=== PATIENT | female | born 1985 | race Caucasian/White ===

== ENCOUNTER → 2021-11-19 | Outpatient (CLI) | payer OTHER | LOC: M WUC 10:08 | PROVIDERS: ATTEND Family Medicine | DX: M54.2 Cervicalgia (principal) ==

== ENCOUNTER → 2022-07-13 | Outpatient (CLI) | payer OTHER ==
[2022-07-13 16:40] LABS: HEMATOCRIT 39.4 % (36.0-47.0); HEMOGLOBIN 13.2 g/dl (12.0-15.5); MEAN CORPUSCULAR HEMOGLOBIN 32.5 pg (27.0-33.0); MEAN CORPUSCULAR HGB CONC 33.5 g/dl (32.0-36.5); PLATELET COUNT, AUTOMATED 197 10^3/uL (150-450); RED BLOOD COUNT 4.06 10^6/uL (4.00-5.40); WHITE BLOOD COUNT 9.7 10^3/uL (4.0-10.0)
[2022-07-13 17:10] LABS: BLOOD UREA NITROGEN 8 MG/DL (9-23); CALCIUM LEVEL 9.3 MG/DL (8.5-10.1); CARBON DIOXIDE LEVEL 31 MMOL/L (20-31); CHLORIDE LEVEL 101 MMOL/L (98-107); CREATININE FOR GFR 0.87 MG/DL (0.55-1.30); GLOMERULAR FILTRATION RATE > 60.0 (>60); GLUCOSE, FASTING 94 MG/DL (60-100); POTASSIUM SERUM 3.8 MMOL/L (3.5-5.1); SODIUM LEVEL 139 MMOL/L (136-145)
== END ==
LOC: M WUC 13:26
PROVIDERS: ATTEND Plastic Surgery Surgery of the Hand
DX: N64.82 Hypoplasia of breast (principal)

== ENCOUNTER → 2022-07-17 | Outpatient (CLI) | payer OTHER, SELFPAY | LOC: M LABSMTC 09:23 | PROVIDERS: ATTEND Anesthesiology | DX: Z01.818 Encounter for other preprocedural examination (principal); Z11.52 Encounter for screening for COVID-19 ==

== ENCOUNTER 2022-07-21 07:10 | Day surgery (SDC) | payer SELFPAY ==
[~2022-07-21] VITALS: Ht 157.5 cm; Wt 56.7 kg
[~2022-07-21 07:10] MED LIST: ceFAZolin SOD 2 GM in IV 1 EA IV ONE
[2022-07-21] MEDS ORDERED: LR 1,000 ML IV SCH (07:35)
[2022-07-21] MEDS ORDERED: ONDANSETRON 4MG 2ML VIAL As Ordered ONE (08:09)
[2022-07-21] MEDS ORDERED: ROCURONIUM BROMIDE 50MG/5ML VIAL As Ordered ONE ×2 (08:09→09:51)
[2022-07-21] MEDS ORDERED: propofoL 200 MG/20 ML VIAL As Ordered ONE (08:09)
[2022-07-21] MEDS ORDERED: LIDOCAINE 2% 100MG/5ML SDV (FOR ANES.) As Ordered ONE (08:09)
[2022-07-21] MEDS ORDERED: fentaNYL 250 MCG/5 ML INJECTION As Ordered ONE (08:09)
[2022-07-21] MEDS ORDERED: MIDAZOLAM INJ 2MG/2ML VIAL As Ordered ONE (08:10)
[2022-07-21] MEDS ORDERED: HYDROmorphone HCL 2MG/ML 1ML VIAL As Ordered ONE (08:16)
[2022-07-21] MEDS ORDERED: ACETAMINOPHEN 1000MG 100ML IV BAG As Ordered ONE (08:16)
[2022-07-21] MEDS ORDERED: SUGAMMADEX SODIUM 500 MG/5 ML VIAL (BRIDION) As Ordered ONE (08:16)
[2022-07-21] MEDS ORDERED: BUPIVACAINE HCL 0.25% 10ML VIAL As Ordered ONE (08:34)
[2022-07-21] MEDS ORDERED: GENTAMICIN SULF 80MG/2ML VIAL As Ordered ONE (08:34)
[2022-07-21] MEDS ORDERED: BUPIVACAINE LIPOSOME/PF 1.3% 20ML VIAL (13.3MG/ML)(EXPAREL) As Ordered ONE (08:35)
[2022-07-21] MEDS ORDERED: LACRILUBE (AKWA TEARS) OPHTH OINT 3.5GM As Ordered ONE (09:43)
[2022-07-21] MEDS ORDERED: ePHEDrine SULFATE 25 MG/5 ML(5MG/ML) SYRINGE As Ordered ONE (09:48)
[2022-07-21] MEDS ORDERED: TRAM50TA2 PO (10:48)
[2022-07-21] MEDS ORDERED: ONDANSETRON 4MG 2ML VIAL IV PRN (10:50)
[2022-07-21] MEDS ORDERED: oxyCODONE 5MG TAB PO PRN (10:50)
[2022-07-21] MEDS ORDERED: fentaNYL 100 MCG/2 ML INJECTION IV PRN (10:50)
[2022-07-21] MEDS ORDERED: METOCLOPRAMIDE INJ 10MG/2ML VIAL IV PRN (11:25)
[2022-07-21] MEDS: MORPHINE 2 MG/ML 1ML VIAL IV PRN ×3 (11:30→12:03)
[2022-07-21 13:45] VITALS: BP 137/79
== END 2022-07-21 14:00 | disposition home or self-care (01) ==
LOC: M SDC 07:10
PROVIDERS: ATTEND Plastic Surgery Surgery of the Hand
DX: N64.82 Hypoplasia of breast (principal)
CPT/HCPCS: 19316; 19325; 81025; C9290; J0131; J0690; J1100; J1170; J1580; J2250; J2270; J2405; J2765; J3010; L8600; S0020

== ENCOUNTER → 2022-10-15 | Outpatient (REF) | payer OTHER ==
[~2022-10-15] MED LIST changes: +TRAM50TA2 PO; -ceFAZolin SOD 2 GM in IV 1 EA IV ONE
== END ==
LOC: M LAB REF 18:51
PROVIDERS: ATTEND Physician Assistant
DX: J06.9 Acute upper respiratory infection, unspecified (principal); J02.9 Acute pharyngitis, unspecified

== ENCOUNTER 2023-01-20 07:41 | Day surgery (SDC) | payer OTHER ==
[~2023-01-20] VITALS: Ht 157.5 cm; Wt 60.1 kg
[~2023-01-20 07:41] MED LIST changes: +LR 1,000 ML IV SCH
[2023-01-20 08:23] LABS: HEMATOCRIT 44.2 % (36.0-47.0); HEMOGLOBIN 15.6 g/dl (12.0-15.5); MEAN CORPUSCULAR HEMOGLOBIN 34.3 pg (27.0-33.0); MEAN CORPUSCULAR HGB CONC 35.3 g/dl (32.0-36.5); MEAN CORPUSCULAR VOLUME 97.1 fl (80.0-96.0); PLATELET COUNT, AUTOMATED 223 10^3/uL (150-450); RED BLOOD COUNT 4.55 10^6/uL (4.00-5.40)
[2023-01-20] MEDS ORDERED: LIDOCAINE 2% 100MG/5ML SDV (FOR ANES.) As Ordered ONE (08:54)
[2023-01-20] MEDS ORDERED: MIDAZOLAM INJ 2MG/2ML VIAL As Ordered ONE (08:54)
[2023-01-20] MEDS ORDERED: fentaNYL 100 MCG/2 ML INJECTION As Ordered ONE (08:54)
[2023-01-20] MEDS ORDERED: ROCURONIUM BROMIDE 50MG/5ML VIAL As Ordered ONE (08:54)
[2023-01-20] MEDS ORDERED: ONDANSETRON 4MG 2ML VIAL As Ordered ONE (08:55)
[2023-01-20] MEDS ORDERED: SUGAMMADEX SODIUM 500 MG/5 ML VIAL (BRIDION) As Ordered ONE (08:55)
[2023-01-20] MEDS ORDERED: propofoL 200 MG/20 ML VIAL As Ordered ONE (08:58)
[2023-01-20] MEDS ORDERED: ESMOLOL INJ 100MG/10ML VIAL As Ordered ONE (09:22)
[2023-01-20] MEDS ORDERED: ACETAMINOPHEN 1000MG 100ML IV BAG As Ordered ONE (09:25)
[2023-01-20] MEDS ORDERED: oxyCODONE 5MG TAB PO PRN (09:55)
[2023-01-20] MEDS ORDERED: LR 1,000 ML IV SCH (09:55)
[2023-01-20] MEDS ORDERED: ONDANSETRON 4MG 2ML VIAL IV PRN (09:55)
[2023-01-20] MEDS ORDERED: fentaNYL 100 MCG/2 ML INJECTION IV PRN (09:55)
[2023-01-20] MEDS ORDERED: IBUP80TA PO (09:58)
[2023-01-20] MEDS ORDERED: COLA100C5 PO (09:58)
[2023-01-20] MEDS ORDERED: PERC5TAB12 PO (09:59)
[2023-01-20] MEDS: HYDROMORPHONE HCL 0.5 MG/ 0.5 ML SYRINGE IV PRN ×2 (10:17→10:22)
[2023-01-20 11:10] VITALS: BP 130/91; TEMP 97; O2SAT 99
== END 2023-01-20 11:28 | disposition home or self-care (01) ==
LOC: M SDC 07:41
PROVIDERS: ATTEND Obstetrics & Gynecology
DX: Z30.2 Encounter for sterilization (principal); R51.9 Headache, unspecified
CPT/HCPCS: 36415; 58661; 81025; 85027; 86850; 86900; 86901; 88302; J0131; J0665; J1100; J1170; J1805; J2250; J2405; J3010

== ENCOUNTER → 2023-10-05 | Outpatient (CLI) | payer OTHER ==
[~2023-10-05] MED LIST changes: +COLA100C5 PO; +IBUP80TA PO; -LR 1,000 ML IV SCH; +PERC5TAB12 PO
[2023-10-05 17:52] LABS: BASO # 0.1 10^3/uL (0.0-0.2); BASO % 0.5 % (0.0-1.0); EOS # 0.1 10^3/uL (0.0-0.5); EOS % 0.7 % (0.0-3.0); HEMATOCRIT 39.8 % (36.0-47.0); HEMOGLOBIN 13.5 g/dl (12.0-15.5); LYMPH # 3.5 10^3/uL (1.5-5.0); LYMPH % 34.5 % (24.0-44.0); MEAN CORPUSCULAR HEMOGLOBIN 33.1 pg (27.0-33.0); MEAN CORPUSCULAR HGB CONC 33.9 g/dl (32.0-36.5); MEAN CORPUSCULAR VOLUME 97.5 fl (80.0-96.0); MONO # 0.6 10^3/uL (0.0-0.8); NEUTROPHILS # 5.9 10^3/uL (1.5-8.5); NEUTROPHILS % 57.9 % (36.0-66.0); PLATELET COUNT, AUTOMATED 186 10^3/uL (150-450); RED BLOOD COUNT 4.08 10^6/uL (4.00-5.40); WHITE BLOOD COUNT 10.1 10^3/uL (4.0-10.0)
[2023-10-05 18:22] LABS: ALBUMIN 3.7 G/DL (3.2-5.2); ALKALINE PHOSPHATASE 26 U/L (46-116); ALT/SGPT 12 U/L (7.0-40); AST/SGOT 12 U/L (<34); BILIRUBIN,TOTAL 0.3 MG/DL (0.3-1.2); BLOOD UREA NITROGEN 12 MG/DL (9-23); CALCIUM LEVEL 8.8 MG/DL (8.5-10.1); CARBON DIOXIDE LEVEL 26 MMOL/L (20-31); CHLORIDE LEVEL 105 MMOL/L (98-107); GLOMERULAR FILTRATION RATE > 60.0 (>60); GLUCOSE, FASTING 79 MG/DL (60-100); IRON (FE) 84 UG/DL (50-170); PERCENT SATURATION 25.5 % (13.2-45.0); SODIUM LEVEL 137 MMOL/L (136-145); TOTAL IRON BINDING CAPACITY 330 UG/DL (250-425); TOTAL PROTEIN 6.4 G/DL (5.7-8.2)
[2023-10-05 18:26] LABS: FOLATE 16.28 NG/ML (>5.4); VITAMIN B12 LEVEL 279 PG/ML (211-911)
[2023-10-05 18:27] LABS: FREE T4 0.95 NG/DL (0.89-1.76)
== END ==
LOC: M WUC 14:34
PROVIDERS: ATTEND Family Medicine
DX: R20.0 Anesthesia of skin (principal); R20.2 Paresthesia of skin